=== PATIENT | female | born 1975 | race Two or more races ===

== ENCOUNTER 2023-10-01 08:14 | Emergency (ER) | payer OTHER, SELFPAY ==
[2023-10-01 08:23] VITALS: BP 126/80
[2023-10-01 08:52] VITALS: BMI 34.8
--- NOTE | 2023-10-01 08:54 | ED.GENMED ---
History of Present Illness
General
Chief Complaint: Musculo-Skeletal Complaint
Source: patient
Exam Limitations: none
Time Seen by Provider: 10/01/23 08:38
Nursing documentation reviewed up to this point in time: agreed with
Travel History
Have you had any contact with someone who has COVID-19?: No
Do you have any symptoms of coronavirus? Fever > 100 degrees, chills, cough, shortness of breath, sore throat, loss of taste or smell, muscle aches, or headache?: No
History of Present Illness
History of Present Illness:
48 yr old female presents to the ER for evaluation of right foot/ankle injury. Patient reports she was improving on vacation on Friday and twisted her right ankle. She has been walking on it since including walking up hills and complains of pain
to the right lateral foot. She has been taking Tylenol. She does complain of swelling. No lacerations or abrasions.
Past History
Past History
ED Past Medical History: Asthma and Other (diverticulitis)
ED Past Surgical History: Other (hemmorhoidectomy)
Patient has exhibited threatening behavior?: No
Social History
Tobacco: Non-smoker
Personal: Partner
Living: with family
Employment: Employed
Review of Systems
Review of Systems
Allergies reviewed?: Yes
All Other Systems: ROS reviewed and negative except as documented in HPI and ROS
Constitutional: Reports no symptoms
Musculoskeletal: Reports other (right ankle/foot pain )
Skin: Reports no symptoms
Neurological: Reports no symptoms
Psychiatric: Reports no symptoms
Phy Exam
General Physical Exam
General Presentation: no apparent distress
General age: appears stated age
General Skin: warm and dry
General Habitus: normal
General Mental: alert
General Hydration: appears well hydrated
Neurological Exam
Neurological Exam: alert and oriented x3
Musculoskeletal Exam
Musculoskeletal Exam: other (Strong pulses right lower extremity mild right lateral ankle and right lateral foot swelling tender to the proximal fifth metatarsal no bony ankle tenderness no abrasions or ecchymosis, normal cap refill)
Skin Exam
Skin Exam: normal color and warm/dry
Psychiatric Exam
Psychiatric Exam: normal mood/affect
Course
Orders/Labs/Results
Orders:
Orders
10/01/23 08:26
Ankle, Right 3 view CR [CR Ankle - Right Min 3 Views *] Urgent
Comment:
Reason For Exam: rolled foot/ankle on vacation two days ago
CR Foot - Right Min 3 Views Urgent
Comment:
Reason For Exam: rolled foot/ankle on vacation two days ago
10/01/23 09:00
Ibuprofen [Motrin] 600 mg PO NOW STA
10/01/23 09:01
Osmany Wrap Right-Treatment ONCE
Comment: ankle/foot
Cast Shoe Right-Treatment ONCE
Crutches-Treatment ONCE
10/01/23 09:23
Crutches-Treatment ONCE
boot [Ortho Boot Right- Treatment] ONCE
Short or tall?: Tall
Vital Signs
Initial and Last Documented VS:
Initial Vital Signs
Temp Pulse Resp BP Pulse Ox
98.0 F 84 16 126/80 98
10/01/23 08:23 10/01/23 08:23 10/01/23 08:23 10/01/23 08:23 10/01/23 08:23
Last Documented Vital Signs
Temp Pulse Resp BP Pulse Ox
98.0 F 64 18 107/52 98
10/01/23 08:23 10/01/23 09:35 10/01/23 09:35 10/01/23 09:35 10/01/23 09:35
Utility Maintenance Worker consulted with Physician
Utility Maintenance Worker consulted with physician?: Yes
Name of Physician Consulted: diana
MDM/Problems Addressed
Differential Diagnosis Includes:
Not limited to sprain strain fracture
MDM/Problems Addressed:
Symptoms are consistent with foot/ankle sprain. Patient has no bony ankle tenderness but tender over the proximal fifth metatarsal with no fracture identified on x-ray. Patient has been walking on her ankle for the past 2 days while vacation.
Will DC the cast shoe Osmany or boot NSAIDs and outpatient follow-up family doctor Ortho if needed
*Critical Care Note
Total Time (30-74mins, 75-104mins- exclusive of procedures): Not Applicable
ED Attending Note
-
Portions of this chart may have been created with voice recognition software.� Occasional wrong word or��sound alike� substitutions may have occurred due to the inherent limitations of voice recognition software.
Discharge Plan
Departure
Patient Disposition: Home (Routine Discharge)
Date of Disposition: 10/01/23
Time of Disposition: 09:25
Patient with high blood pressure during this ER visit?: No
Condition: Fair
Covid-19: Not Applicable
Discharge Problem:
Foot sprain, Ankle sprain
Instructions: Ankle Sprain (DC), Foot Sprain (DC), BLOOD PRESSURE
Prescriptions:
No Action
cetirizine 10 MG tablet
10 mg PO DAILY
omeprazole 40 MG capsule,delayed release(DR/EC)
40 mg PO DAILY
fluticasone propionate 1 SPRAY spray,suspension
2 spray intranasal DAILY
montelukast 10 MG tablet
1 tab PO DAILY
Referrals:
Romel Castano MD [Active] -
Activity Restrictions/Additional Instructions:
Wear boot for support until seen and eval by orthopedics. Keep elevated as much as possible.
Ibuprofen 600 mg every hours with food.
You may use crutches. Continue to ice for 20 minutes at a time several times a day
Follow-up with orthopedics in the next several days call today to make an appointment. Return if any worsening of symptoms.
Interventions
Interventions:
*Risk Screen - Suicide Last Done: 10/01/23 08:52
*General Assessment Last Done: 10/01/23 08:52
*Neglect/Abuse Screening Last Done: 10/01/23 08:52
ED- Fall Risk Assessment Last Done: 10/01/23 08:52
*ED COVID-19 Vaccine History Last Done: 10/01/23 08:23
*Nursing Disposition Last Done: 10/01/23 09:43
ED-Musculoskeletal Assessment Last Done: 10/01/23 08:52
Discharge Date and Time
Discharge Date/Time: 10/01/23 09:44
[2023-10-01] MEDS: MOTRIN 600 MG PO (09:06)
[2023-10-01 09:35] VITALS: BP 107/52
== END 2023-10-01 09:44 | disposition home or self-care (01) ==
LOC: EMR 08:14
PROVIDERS: EMERGENCY PHYSICIAN Emergency Medicine; FAMILY PHYSICIAN Nurse Practitioner
DX: S93.401A Sprain of unspecified ligament of right ankle, initial encounter (principal); S93.601A Unspecified sprain of right foot, initial encounter; X50.1XXA Overexertion from prolonged static or awkward postures, initial encounter
CPT/HCPCS: 99283; 73610; 73630

== ENCOUNTER → 2024-02-04 15:52 | Outpatient (REF) | payer OTHER, SELFPAY | LOC: WDC 15:52 | PROVIDERS: ATTENDING PHYSICIAN Nurse Practitioner | DX: Z12.31 Encounter for screening mammogram for malignant neoplasm of breast (principal) | CPT/HCPCS: 77063; 77067 ==

== ENCOUNTER 2024-09-12 18:39 | Emergency (ER) | payer OTHER, SELFPAY ==
[2024-09-12 18:41] VITALS: BP 115/81
--- NOTE | 2024-09-12 19:24 | ED.GENMED ---
History of Present Illness
<DO Katerine Rich Last Filed: 09/12/24 19:27>
General
Chief Complaint: Exposure-Chemical
Time Seen by Provider: 09/12/24 18:55
<IRAM Troy Last Filed: 09/12/24 20:00>
General
Source: patient
Exam Limitations: none
History of Present Illness
History of Present Illness:
49-year-old female presents for evaluation. She was making soap and the whole soap solution including lice splashed in her eye. This splashed in her right eye only she has no left eye discomfort. She did irrigate her eye with water for 15 minutes
at home. She does not wear contacts. No other complaints.
Past History
<DO Katerine Rich Filed: 09/12/24 19:27>
Past History
ED Past Medical History: Asthma and Other (diverticulitis)
ED Past Surgical History: Other (hemmorhoidectomy)
Patient has exhibited threatening behavior?: No
Social History
Tobacco: Non-smoker
Personal: Partner
Living: with family
Employment: Employed
Phy Exam
<IRAM Troy Last Filed: 09/12/24 20:00>
Physical Exam
Physical Exam:
General: Well-appearing female no acute respiratory distress
HEENT: NC/AT
Right eye exam. pH right around 7 initially. The eye was anesthetized with topical drops and examined with fluorescein stain. There are 2 small areas of uptake overlying the medial aspect of the cornea. There is no retained foreign bodies.
Course
<DO Katerine Rich Last Filed: 09/12/24 19:27>
Orders/Labs/Results
Orders:
Orders
09/12/24 19:47
Erythromycin (Ilotycin) [Erythromycin 0.5% Ophthalmic Ointment] See Dose Instructions OPHTH NOW STA
Vital Signs
Initial and Last Documented VS:
Initial Vital Signs
Temp Pulse Resp BP Pulse Ox
98.6 F 106 20 115/81 100
09/12/24 18:41 09/12/24 18:41 09/12/24 18:41 09/12/24 18:41 09/12/24 18:41
Last Documented Vital Signs
Temp Pulse Resp BP Pulse Ox
98.6 F 106 20 115/81 100
09/12/24 18:41 09/12/24 18:41 09/12/24 18:41 09/12/24 18:41 09/12/24 18:41
<Ilan Mitchell PA-C - Last Filed: 09/12/24 20:00>
Orders/Labs/Results
Orders:
Orders
09/12/24 19:47
Erythromycin (Ilotycin) [Erythromycin 0.5% Ophthalmic Ointment] See Dose Instructions OPHTH NOW STA
Vital Signs
Initial and Last Documented VS:
Initial Vital Signs
Temp Pulse Resp BP Pulse Ox
98.6 F 106 20 115/81 100
09/12/24 18:41 09/12/24 18:41 09/12/24 18:41 09/12/24 18:41 09/12/24 18:41
Last Documented Vital Signs
Temp Pulse Resp BP Pulse Ox
98.6 F 106 20 115/81 100
09/12/24 18:41 09/12/24 18:41 09/12/24 18:41 09/12/24 18:41 09/12/24 18:41
<Ilan Mitchell PA-C - Last Filed: 09/12/24 20:00>
MDM/Problems Addressed
Differential Diagnosis Includes:
Patient's right eye was irrigated with a liter of saline using the nasal cannula irrigation. pH was rechecked and was normal. She was started on erythromycin ointment. Will be advised to follow up with eye doctor for further evaluation.
<Ilan Mitchell PA-C - Last Filed: 09/12/24 20:00>
*Critical Care Note
Total Time (30-74mins, 75-104mins- exclusive of procedures): Not Applicable
ED Attending Note
<Romel Joaquin DO - Last Filed: 09/12/24 19:27>
ED Attending Note
Patient seen and examined by attending physician: Yes
I performed the substantive portion of visit, reviewed & personally made and approve the management plan that is documented in note by myself or RAHEEL.: Yes
-
Portions of this chart may have been created with voice recognition software.� Occasional wrong word or��sound alike� substitutions may have occurred due to the inherent limitations of voice recognition software.
Discharge Plan
Departure
Patient Disposition: Home (Routine Discharge)
Date of Disposition: 09/12/24
Time of Disposition: 19:57
Patient with high blood pressure during this ER visit?: No
Discharge Problem:
Chemical exposure of eye
Instructions: Corneal Abrasion ED
Prescriptions:
No Action
cetirizine 10 MG tablet
10 mg PO DAILY
omeprazole 40 MG capsule,delayed release(DR/EC)
40 mg PO DAILY
fluticasone propionate 1 SPRAY spray,suspension
2 spray intranasal DAILY
montelukast 10 MG tablet
1 tab PO DAILY
Activity Restrictions/Additional Instructions:
Use ointment every 4 hours while awake. Follow-up with your eye doctor. You may take Tylenol or ibuprofen for pain. Return if worse otherwise
Interventions
Interventions:
*Risk Screen - Suicide Last Done: 09/12/24 18:46
*General Assessment Last Done: 09/12/24 18:53
*Neglect/Abuse Screening Last Done: 09/12/24 18:46
*ED COVID-19 Vaccine History Last Done: 09/12/24 18:45
ED-EENT Assessment Last Done: 09/12/24 18:56
ED- Pulmonary Assessment Last Done: 09/12/24 18:56
ED-Skin Assessment Last Done: 09/12/24 18:56
Discharge Date and Time
Print Language: SPANISH
[2024-09-12] MEDS: ERYTHROMYCIN 0.5% OPHTHALMIC OINTMENT 1 APPLIC OPHTH (20:13)
== END 2024-09-12 20:22 | disposition home or self-care (01) ==
LOC: EMR 18:39
PROVIDERS: EMERGENCY PHYSICIAN Emergency Medicine; FAMILY PHYSICIAN Nurse Practitioner
DX: Z77.098 Contact with and (suspected) exposure to other hazardous, chiefly nonmedicinal, chemicals (principal); J45.909 Unspecified asthma, uncomplicated
CPT/HCPCS: 99282

== ENCOUNTER 2024-10-16 13:56 | Emergency (ER) | payer SELFPAY ==
[2024-10-16 14:00] VITALS: BP 131/86
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
== END 2024-10-16 16:52 | disposition home or self-care (01) ==
LOC: EMR 13:56
PROVIDERS: EMERGENCY PHYSICIAN Emergency Medicine; FAMILY PHYSICIAN Internal Medicine
DX: S16.1XXA Strain of muscle, fascia and tendon at neck level, initial encounter (principal); V43.52XA Car driver injured in collision with other type car in traffic accident, initial encounter; J45.909 Unspecified asthma, uncomplicated
CPT/HCPCS: 99283; 72040; 73030